=== PATIENT | male | born 1950 | race Caucasian/White ===

== ENCOUNTER 2023-12-06 17:50 | Inpatient (IN) | payer MEDICARE ==
[~2023-12-06 17:50] MED LIST: Iopamidol 370 76% 100 ML VIAL ONE
[2023-12-06] MEDS ORDERED: Atropine Sulfate 1 mg/10 ml Syringe ONE (18:20)
[2023-12-06 18:22] LABS: #Basophils Less than 0.03 10x3/uL (0.0-0.2); %Basophils 0.3 % (0.0-1.0); %Eosinophils 0.6 % (0.0-10.0); %Lymphocytes 29.9 % (21.0-51.0); %Monocytes 11.4 % (0.0-10.0); %Neutrophils 57.2 % (42.0-75.0); Hematocrit 20.8 % (42.0-52.0); Hemoglobin 6.5 g/dL (14.0-18.0); Mean Corpuscular HGB CONC 31.3 g/dL (32.0-36.0); Mean Corpuscular Volume 92.9 fL (78.0-98.0); Mean Platelet Volume 9.7 fL (7.4-10.4); Platelet Count 131 10x3/uL (130-400); Red Blood Cell (RBC) Count 2.24 mill/uL (4.70-6.10)
[2023-12-06 18:27] LABS: ALT (SGPT) 25 U/L (8-55); AST (SGOT) 25 U/L (5-34); Albumin 2.7 g/dL (3.4-4.8); Alkaline Phosphatase 161 U/L (40-110); Anion Gap 13 mmol/L (10-20); BUN (Urea Nitrogen) 27 mg/dL (8.4-25.7); Bilirubin, Total 0.2 mg/dL (0.2-1.2); Calc. Creatinine Clearance 0 mL/min (70-130); Calcium 8.9 mg/dL (7.8-10.44); Carbon Dioxide 22 mmol/L (23-31); Chloride 100 mmol/L (98-107); Estimated GFR 44; Globulin 3.1 g/dL (2.4-3.5); Glucose 119 mg/dL (83-110); Lipase 10 U/L (8-78); Potassium 4.3 mmol/L (3.5-5.1); Protein, Total 5.8 g/dL (5.8-8.1); Sodium 131 mmol/L (136-145)
[2023-12-06 18:30] LABS: INR-International Normal Ratio 1.2; Prothrombin Time 15.1 sec (12.0-14.7)
[2023-12-06 18:42] LABS: Troponin I 19.296 ng/mL (< 0.028)
[2023-12-06 18:44] LABS: PTT 194.9 sec (22.9-36.1)
[2023-12-06] MEDS ORDERED: Clopidogrel Bisulfate 300 MG TAB ONE (19:48)
[2023-12-06] MEDS ORDERED: Nitroglycerin 50 MG/250 ML BOT 250 ML ONE (19:49)
[2023-12-06] MEDS ORDERED: fentaNYL 50 mcg/mL 1 mL Vial ONE ×2 (19:49→19:53)
[2023-12-06] MEDS ORDERED: Heparin 10,000 UNITS/ 10 ML VIAL ONE ×2 (19:49→20:02)
[2023-12-06] MEDS ORDERED: Midazolam HCl 2 mg/2 ml Vial ONE (19:49)
[2023-12-06] MEDS ORDERED: TICAGRELOR 90 MG TABLET ONE (19:50)
[2023-12-06] MEDS ORDERED: Adenosine 6 mg (2 mL) VIAL ONE (19:51)
[2023-12-06] MEDS ORDERED: Verapamil 5 MG/2 ML VIAL ONE (19:59)
[2023-12-06] MEDS: Nitroglycerin 50 MG/250 ML BOT 250 ML IVPB SCH (21:10)
[2023-12-06] MEDS: Amlodipine 5 MG TAB PO SCH (22:17)
[2023-12-06] MEDS: Lisinopril 5 MG TAB PO SCH (22:18)
[2023-12-06] MEDS: Aspirin Chewable 81 MG TAB PO SCH (22:19)
[2023-12-06] MEDS: Pantoprazole 40 MG VIAL IVP SCH (22:19)
[2023-12-06] MEDS: Nitroglycerin 50 MG/250 ML BOT 250 ML ONE (22:21)
[2023-12-07] MEDS: Sodium Chloride 0.9% 1,000 ML IV SCH (00:23)
[2023-12-07 05:29] VITALS: BMI 24.2
[2023-12-07 06:07] LABS: #Basophils Less than 0.03 10x3/uL (0.0-0.2); #Eosinophils Less than 0.03 10x3/uL (0.0-0.7); %Basophils 0.3 % (0.0-1.0); %Eosinophils 0.3 % (0.0-10.0); %Monocytes 13.2 % (0.0-10.0); %Neutrophils 64.3 % (42.0-75.0); Hemoglobin 8.1 g/dL (14.0-18.0); Mean Corpuscular HGB CONC 32.4 g/dL (32.0-36.0); Mean Corpuscular Hemoglobin 29.6 pg (27.0-31.0); Mean Corpuscular Volume 91.2 fL (78.0-98.0); Mean Platelet Volume 8.9 fL (7.4-10.4); Platelet Count 106 10x3/uL (130-400); RBC Distribution Width 17.2 % (11.5-14.5); Red Blood Cell (RBC) Count 2.74 mill/uL (4.70-6.10)
[2023-12-07 06:11] LABS: Hemoglobin A1c 4.9 % (4.0-6.0)
[2023-12-07 06:14] LABS: ALT (SGPT) 23 U/L (8-55); AST (SGOT) 26 U/L (5-34); Albumin 2.7 g/dL (3.4-4.8); Alkaline Phosphatase 156 U/L (40-110); Anion Gap 14 mmol/L (10-20); BUN (Urea Nitrogen) 25 mg/dL (8.4-25.7); Bilirubin, Total 0.9 mg/dL (0.2-1.2); Calc. Creatinine Clearance 58 mL/min (70-130); Carbon Dioxide 18 mmol/L (23-31); Cardiac Risk 3.3 (Less than 4.5); Chloride 103 mmol/L (98-107); Cholesterol 156 mg/dl (< 200 Desired); Estimated GFR 53; Globulin 3.1 g/dL (2.4-3.5); Glucose 102 mg/dL (83-110); HDL Cholesterol 48 mg/dL (>60 Neg Risk); LDL Cholesterol, Calculated 85 mg/dL; Potassium 4.5 mmol/L (3.5-5.1); Protein, Total 5.8 g/dL (5.8-8.1); Sodium 130 mmol/L (136-145); Triglycerides 116 mg/dL (Less than 150)
[2023-12-07] MEDS: Lisinopril 10 MG TAB PO SCH (06:35)
[2023-12-07 07:44] LABS: Troponin I 25.409 ng/mL (< 0.028)
[2023-12-07] MEDS: Loperamide HCl 2 MG CAP PO SCH (08:34)
[2023-12-07] MEDS: TICAGRELOR 90 MG TABLET PO SCH (08:34)
[2023-12-07] MEDS: Aspirin 81 mg Enteric Coated Tablet PO SCH (08:34)
[2023-12-07] MEDS: Phenazopyridine HCl 100 MG TAB PO SCH (08:34)
[2023-12-07] MEDS: DICLOFENAC SODIUM PO SCH (08:53)
[2023-12-07] MEDS: MISOPROSTOL PO SCH (08:53)
[2023-12-07] MEDS: Amlodipine 5 MG TAB PO SCH (08:58)
[2023-12-07] MEDS: Pantoprazole DR 40 MG TAB PO SCH (08:58)
[2023-12-07] MEDS: Carvedilol 3.125 MG TAB PO SCH (08:58)
[2023-12-07] MEDS ORDERED: Aspirin Chewable 81 MG TAB PO SCH (09:00)
[2023-12-07 09:17] LABS: Magnesium 1.8 mg/dL (1.6-2.6)
[2023-12-07 09:31] VITALS: BMI 24.2
[2023-12-07] MEDS: Magnesium Sulfate In Water 4 GM in Premix 1 BAG IVPB SCH (14:35)
[2023-12-07] MEDS ORDERED: Lisinopril 10 MG TAB PO SCH (21:00)
[2023-12-07] MEDS: Atorvastatin Calcium 40 MG TAB PO SCH (21:17)
[2023-12-07] MEDS: Lisinopril 5 MG TAB PO SCH (21:18)
[2023-12-07] MEDS: Zolpidem Tartrate 5 MG TAB PO SCH (21:26)
[2023-12-08 07:07] LABS: #Basophils Less than 0.03 10x3/uL (0.0-0.2); %Basophils 0.3 % (0.0-1.0); %Eosinophils 0.8 % (0.0-10.0); %Lymphocytes 26.4 % (21.0-51.0); %Monocytes 14.2 % (0.0-10.0); %Neutrophils 57.5 % (42.0-75.0); Anion Gap 12 mmol/L (10-20); BUN (Urea Nitrogen) 20 mg/dL (8.4-25.7); Calc. Creatinine Clearance 59 mL/min (70-130); Calcium 8.8 mg/dL (7.8-10.44); Carbon Dioxide 19 mmol/L (23-31); Chloride 105 mmol/L (98-107); Estimated GFR 54; Glucose 92 mg/dL (83-110); Hematocrit 25.3 % (42.0-52.0); Hemoglobin 8.4 g/dL (14.0-18.0); Mean Corpuscular HGB CONC 33.2 g/dL (32.0-36.0); Mean Corpuscular Hemoglobin 29.7 pg (27.0-31.0); Mean Corpuscular Volume 89.4 fL (78.0-98.0); Mean Platelet Volume 9.7 fL (7.4-10.4); Platelet Count 99 10x3/uL (130-400); Potassium 4.1 mmol/L (3.5-5.1); RBC Distribution Width 17.2 % (11.5-14.5); Red Blood Cell (RBC) Count 2.83 mill/uL (4.70-6.10); Sodium 132 mmol/L (136-145)
[2023-12-08] MEDS: Carvedilol 6.25 MG TAB PO SCH (08:57)
[2023-12-08] MEDS: Lisinopril 10 MG TAB PO SCH (08:59)
[2023-12-08] MEDS ORDERED: Enoxaparin 40 MG (0.4 mL) SYRINGE SC SCH (09:00)
[2023-12-08 12:42] LABS: #Basophils 0.03 10x3/uL (0.0-0.2); %Basophils 0.4 % (0.0-1.0); %Eosinophils 0.6 % (0.0-10.0); %Lymphocytes 20.5 % (21.0-51.0); %Monocytes 14.1 % (0.0-10.0); %Neutrophils 63.8 % (42.0-75.0); Hematocrit 28.8 % (42.0-52.0); Hemoglobin 9.3 g/dL (14.0-18.0); Mean Corpuscular HGB CONC 32.3 g/dL (32.0-36.0); Mean Corpuscular Volume 92.9 fL (78.0-98.0); Mean Platelet Volume 9.7 fL (7.4-10.4); Platelet Count 115 10x3/uL (130-400); RBC Distribution Width 17.3 % (11.5-14.5)
[2023-12-09 05:46] LABS: Anion Gap 14 mmol/L (10-20); BUN (Urea Nitrogen) 19 mg/dL (8.4-25.7); Calc. Creatinine Clearance 59 mL/min (70-130); Calcium 9.2 mg/dL (7.8-10.44); Carbon Dioxide 19 mmol/L (23-31); Chloride 105 mmol/L (98-107); Estimated GFR 54; Glucose 93 mg/dL (83-110); Magnesium 1.9 mg/dL (1.6-2.6); Potassium 4.2 mmol/L (3.5-5.1); Sodium 134 mmol/L (136-145)
[2023-12-09 11:06] VITALS: TEMP 97.8
[2023-12-09 14:55] VITALS: BP 136/87
[2023-12-09] MEDS: Clopidogrel Bisulfate 300 MG TAB PO SCH (14:59)
[2023-12-10] MEDS ORDERED: FLU (Fluad Triv) TS24-25 (65UP)/MF59C/PF 45 MCG/0.5 ML Syringe IM ONE (09:00)
[2023-12-10] MEDS ORDERED: Clopidogrel Bisulfate 75 MG TAB PO SCH (09:00)
== END 2023-12-09 15:43 | disposition home or self-care (01) | DRG 322 ==
LOC: ERS 17:50 → CCU 20:56 → 2NO 12-07 12:42
PROVIDERS: ADMIT Internal Medicine Cardiovascular Disease; ATTEND Internal Medicine Cardiovascular Disease
PROC: 4A023N7 Measurement of Cardiac Sampling and Pressure, Left Heart, Percutaneous Approach (ICD-10-PCS; principal; 2023-12-06)
PROC: 027035Z Dilation of Coronary Artery, One Artery with Two Drug-eluting Intraluminal Devices, Percutaneous Approach (ICD-10-PCS; 2023-12-06)
PROC: B2111ZZ Fluoroscopy of Multiple Coronary Arteries using Low Osmolar Contrast (ICD-10-PCS; 2023-12-06)
PROC: B2151ZZ Fluoroscopy of Left Heart using Low Osmolar Contrast (ICD-10-PCS; 2023-12-06)
PROC: 30233N1 Transfusion of Nonautologous Red Blood Cells into Peripheral Vein, Percutaneous Approach (ICD-10-PCS; 2023-12-07)
DX: I21.11 ST elevation (STEMI) myocardial infarction involving right coronary artery (principal); E87.1 Hypo-osmolality and hyponatremia; C67.9 Malignant neoplasm of bladder, unspecified; I12.9 Hypertensive chronic kidney disease with stage 1 through stage 4 chronic kidney disease, or unspecified chronic kidney disease; N18.2 Chronic kidney disease, stage 2 (mild); D64.81 Anemia due to antineoplastic chemotherapy; T45.1X5A Adverse effect of antineoplastic and immunosuppressive drugs, initial encounter
CPT/HCPCS: 36415; 36430; 71045; 80048; 80053; 80061; 83036; 83690; 83735; 83880; 84484; 85025; 85347; 85610; 85730; 86850; 86900; 86901; 92941; 93005; 93010; 93306; 93458; 93798; 99152; 99153; C1725; C1769; C1874; C1887; C1894; C9606; J0153; J0461; J1644; J2250; J2470; J3010; J3475; J7030; P9016; Q9967

== ENCOUNTER 2023-12-19 16:35 | Emergency (ER) | payer MEDICARE ==
[2023-12-19 17:53] LABS: #Basophils 0.06 10x3/uL (0.0-0.2); %Basophils 1.1 % (0.0-1.0); %Eosinophils 1.1 % (0.0-10.0); %Monocytes 15.4 % (0.0-10.0); %Neutrophils 43.1 % (42.0-75.0); Hematocrit 26.1 % (42.0-52.0); Hemoglobin 8.2 g/dL (14.0-18.0); Mean Corpuscular HGB CONC 31.4 g/dL (32.0-36.0); Mean Corpuscular Hemoglobin 29.8 pg (27.0-31.0); Mean Corpuscular Volume 94.9 fL (78.0-98.0); Mean Platelet Volume 9.2 fL (7.4-10.4); Platelet Count 167 10x3/uL (130-400); RBC Distribution Width 16.1 % (11.5-14.5); Red Blood Cell (RBC) Count 2.75 mill/uL (4.70-6.10)
[2023-12-19 18:11] LABS: ALT (SGPT) 12 U/L (8-55); AST (SGOT) 12 U/L (5-34); Albumin 3.1 g/dL (3.4-4.8); Alkaline Phosphatase 111 U/L (40-110); Anion Gap 14 mmol/L (10-20); BUN (Urea Nitrogen) 18 mg/dL (8.4-25.7); Bilirubin, Total 0.2 mg/dL (0.2-1.2); Calc. Creatinine Clearance 0 mL/min (70-130); Calcium 9.1 mg/dL (7.8-10.44); Carbon Dioxide 19 mmol/L (23-31); Chloride 104 mmol/L (98-107); Estimated GFR 47; Globulin 3.2 g/dL (2.4-3.5); Glucose 101 mg/dL (83-110); Potassium 4.1 mmol/L (3.5-5.1); Protein, Total 6.3 g/dL (5.8-8.1); Sodium 133 mmol/L (136-145)
[2023-12-19 18:24] LABS: Troponin I 1.416 ng/mL (< 0.028)
== END 2023-12-20 00:20 | disposition home or self-care (01) ==
LOC: ERS 16:35
DX: D64.9 Anemia, unspecified (principal); C67.9 Malignant neoplasm of bladder, unspecified; I10 Essential (primary) hypertension; R54 Age-related physical debility; Z95.5 Presence of coronary angioplasty implant and graft; Z79.899 Other long term (current) drug therapy; Z79.82 Long term (current) use of aspirin; Z79.02 Long term (current) use of antithrombotics/antiplatelets
CPT/HCPCS: 36430; 71045; 80053; 83735; 84484; 85025; 86850; 86900; 86901; 86920; 93005; 99284; P9016; 36415